=== PATIENT | female | born 1965 | race Caucasian/White ===

== ENCOUNTER → 2019-10-25 13:07 | Outpatient (CLI) | payer BC | END | disposition home or self-care (01) | LOC: D.MRI 13:00 | PROVIDERS: ATTEND Clinical Nurse Specialist Family Health | DX: M25.572 Pain in left ankle and joints of left foot (principal) ==

== ENCOUNTER → 2019-11-06 09:12 | Outpatient (CLI) | payer BC | END | disposition home or self-care (01) | LOC: D.US 11-05 13:30 → D.HCCARDIO 11-05 14:30 → D.MAMMO 09:00 → D.US 09:12 → D.HCCARDIO 14:30 | PROVIDERS: ATTEND Internal Medicine Interventional Cardiology | DX: Z12.31 Encounter for screening mammogram for malignant neoplasm of breast (principal); I20.9 Angina pectoris, unspecified; R09.89 Other specified symptoms and signs involving the circulatory and respiratory systems ==

== ENCOUNTER 2020-02-06 07:00 | Day surgery (SDC) | payer BC ==
[2020-02-03 10:32] LABS: HEMATOCRIT 39.9 % (36.0-48.0); HEMOGLOBIN 13.4 g/dL (12-16); MCH 30.9 pg (26.0-34.0); MCHC 33.6 g/dL (31.0-37.0); MCV 92.1 fL (80.0-100.0); MEAN PLATELET VOLUME 8.8 fL (7.4-10.4); RBC 4.33 10x6/uL (4.00-5.40); WBC 5.4 10x3/uL (4.8-10.8)
[~2020-02-06] VITALS: Ht 167.6 cm; Wt 95.7 kg
--- NOTE | ~2020-02-06 | OP ---
PATIENT NAME: CONNIE FRANCO MEDICAL RECORD: [id number] :65 LOCATION:[facility] ADMISSION DATE: SURGEON: SHADY CRENSHAW MD DATE OF OPERATION: 02/06/2020 PREOPERATIVE DIAGNOSIS: Left peroneus longus tendon tear. POSTOPERATIVE DIAGNOSIS: Left peroneus longus tendon tear. PROCEDURE: 1. Repair of left peroneus longus tendon with synovectomy. 2. Application of platelet rich plasma. SURGEON: Shady Crenshaw MD MACHINE TECH: ISABELLA Reeves INTRAOPERATIVE COMPLICATIONS: None. SUMMARY OF PATHOLOGIC FINDINGS: Consistent with the preoperative diagnosis and MRI, the patient had substantial amount of synovial fluid synovitis about the peroneus longus tendon. This did require substantial synovial debridement. The synovium was sent for permanent specimen. The [id number] split in the peroneus longus was repaired with a 2-0 FiberWire and PRP was used. OPERATIVE SUMMARY IN DETAIL: After obtaining the appropriate preoperative orthopedic surgery consent as well as anesthetic consultation, evaluation and clearance, the patient was brought to the operating room and placed on the operating table in a supine position. After adequate general laryngeal mask was administered, the patient was placed in a right lateral decubitus position. All pressure points were well padded. She was held firmly to the operating table using the vacuum pack suction system. Tourniquet was placed about the proximal aspect of the left lower extremity. Left lower extremity was then prepped and draped in routine sterile fashion. Simultaneously, blood draw for PRP was being done after the patient was fully asleep. PRP was handed off for using the Mirza system from [employer]. The leg was elevated and exsanguinated, tourniquet was inflated to 350 mmHg. Routine timeout was taken and agreed upon by all. Curvilinear incision was made over the patient's prior incision. This was taken down to the level of the peroneus longus and brevis. The brevis had a substantial amount of synovitis as did the longus. The brevis did not show any signs of tear. The brevis was cleaned of all synovitis and inspected, and found to be somewhat irritated, but not thickened or torn peroneus longus; however, it was grossly thickened and torn. The torn portions of it were gently debrided along with the synovium and then a running 2.0 FiberWire was utilized to reapproximate the tendon and close down the area that was split. At this point, the retinaculum around the posterior aspect of the fibula was reapproximated also with a 2.0 FiberWire and then the entire area was infiltrated including the tendon themselves along with the tendon sheath proximally and distally and the skin surrounding with PRP. Skin closure was achieved with 2-0 Vicryl and 4-0 Prolene in running fashion. Sterile dressings were applied. The posterior L&U splint was applied. The tourniquet had been deflated. The patient was awakened, taken to recovery room in stable condition. All final needle and sponge counts were correct. TRANSINT:[id number] Voice Confirmation ID: [id number] DOCUMENT ID: [id number] OPERATIVE REPORT [id number] CONNIE FRANCO MD, SHADY LANE CC: [id number] DICTATION DATE: 02/06/20 1026 [employer] CH[employer] BUYER: 02/06/20 1533 [facility] [place] 02/06/20 [id number] [place] [address]
[~2020-02-06 07:00] MED LIST: LIPITOR20 MG PO; VITAMIN D1000 UNIT PO
[2020-02-06 07:55] VITALS: BP 148/58; Ht 167.6 cm; Wt 95.7 kg
[2020-02-06] MEDS ORDERED: HYDROCODON-ACE1 EA10 PO (10:04)
--- NOTE | 2020-02-06 13:48 | NUR ---
1144 PT C/O LEFT CALF AREA CRAMPING AND DISCOMFORT IS A 7 OUT OF 10. MEDICATED WITH NORCO. 1200 NO RELIEF FROM PAIN MED. PAIN LEVEL UNCHANGED. 1245 PAIN LEVEL IS 5 OUT OF 10. STILL GRIMACING AND UNCOMFORTABLE. CALLED DR CRENSHAW'S PAGER. [address] CRENSHAW AFTER MULTIPLE ATTEMPTS. PT STATES SHE IS FEELING BETTER AND IS SMILING. PT STATES SHE IS READY TO GO HOME. 1317 IV DC'D. CATHETER TIP INTACT. NO BLEEDING AT SITE. BANDAID APPLIED. PT ASSISTED TO BR USING WC WITHOUT INCIDENT. 1341 PT STATES HER PAIN LEVEL IS DOWN TO 2.5 OUT OF 10. PT AND HER VOICED UNDERSTANDING OF DISCHARGE INSTRUCTIONS.
== END 2020-02-06 13:41 | disposition home or self-care (01) ==
LOC: D.OPS 07:00 → D.PAN 12:00 → D.OPS 13:41
PROVIDERS: Anesthesiology; ATTEND Orthopaedic Surgery
DX: S86.312A Strain of muscle(s) and tendon(s) of peroneal muscle group at lower leg level, left leg, initial encounter (principal); X58.XXXA Exposure to other specified factors, initial encounter; E78.5 Hyperlipidemia, unspecified; M25.572 Pain in left ankle and joints of left foot; M67.962 Unspecified disorder of synovium and tendon, left lower leg
CPT/HCPCS: 28200; 0232T

== ENCOUNTER 2020-05-29 11:30 | Outpatient (CLI) | payer BC ==
[2020-02-06 07:55] VITALS: BMI 34.1
[~2020-05-29 11:30] MED LIST changes: +HYDROCODON-ACE1 EA10 PO
== END 2020-05-29 12:30 | disposition home or self-care (01) ==
LOC: D.MAMMO 11:30
PROVIDERS: ATTEND Family Medicine
DX: Z12.31 Encounter for screening mammogram for malignant neoplasm of breast (principal)

== ENCOUNTER 2020-11-06 11:00 | Outpatient (CLI) | payer BC ==
[2020-02-06 07:55] VITALS: BMI 34.1
== END 2020-11-06 23:59 | disposition home or self-care (01) ==
LOC: D.MAMMO 11:00
PROVIDERS: ATTEND Family Medicine
DX: R92.8 Other abnormal and inconclusive findings on diagnostic imaging of breast (principal)

== ENCOUNTER → 2020-11-23 07:40 | Outpatient (CLI) | payer BC ==
[2020-02-06 07:55] VITALS: BMI 34.1
== END | disposition home or self-care (01) ==
LOC: D.US 07:40
PROVIDERS: ATTEND Family Medicine
DX: R92.8 Other abnormal and inconclusive findings on diagnostic imaging of breast (principal)